=== PATIENT | female | born 1940 | race Caucasian/White ===

== ENCOUNTER → 2024-02-23 | Outpatient (CLI) | payer MEDICARE, SELFPAY ==
[2024-02-23 13:50] LABS: Free T4 (Free Thyroxine) 1.41 ng/dL (0.89-1.76); Thyroid Stimulating Hormone 1.96 uIU/mL (0.55-4.78)
== END | disposition home or self-care (01) ==
LOC: COPL 12:15
PROVIDERS: PCP Family Medicine; Referring Provider Internal Medicine Endocrinology, Diabetes & Metabolism; Visit Provider Internal Medicine Endocrinology, Diabetes & Metabolism
DX: E06.3 Autoimmune thyroiditis (principal)
CPT/HCPCS: 36415; 84439; 84443

== ENCOUNTER → 2024-06-21 | Outpatient (CLI) | payer MEDICARE, SELFPAY ==
--- NOTE | 2024-06-21 | XR_ITS ---
Examination: Abdomen AP single view Technique: AP portable supine abdomen, single view Exam date and time: June 21, 2024 1222 hours INDICATIONS: Abdominal pain beginning 6 months ago. FINDINGS: Moderate to large amounts of stool throughout the colon No obstruction No free air Prominent lumbar dextroscoliosis IMPRESSION: Moderate to large amounts of stool throughout the colon
[2024-06-21 14:10] LABS: Collection Type, Urine Clean Catch
[2024-06-21 14:32] LABS: Basophils % (Auto) 1 % (0-2.5); Eosinophils # (Auto) 0.2 Thou/mm3 (0.0-0.5); Eosinophils % (Auto) 4 % (0-10); Hematocrit 43.9 % (36.0-46.0); Hemoglobin 14.7 g/dL (12.0-16.0); Immature Granulocytes % (Auto) 0 % (0-0); Immature Granulocytes Auto 0.01 Thou/mm3 (0.00-0.00); Lymphocytes # (Auto) 1.5 Thou/mm3 (1.0-4.8); Lymphocytes % (Auto) 27 % (10-50); Mean Corpuscular HGB Conc 33.5 g/dl (31.0-37.0); Mean Corpuscular Hemoglobin 30.5 pg (25.0-35.0); Mean Corpuscular Volume 91 fL (80-100); Monocytes # (Auto) 0.3 Thou/mm3 (0.0-0.8); Monocytes % (Auto) 6 % (0-12); Neutrophils # (Auto) 3.4 Thou/mm3 (1.8-7.7); Neutrophils % (Auto) 63 % (37-80); Nucleated Red Blood Cell % 0 /100 WBC (0); Platelet Count 167 Thou/mm3 (140-440); RDW Standard Deviation 45.6 fL (36.4-46.3); Red Blood Count 4.82 Miln/mm3 (4.00-5.20); White Blood Count 5.4 Thou/mm3 (3.6-11.0)
[2024-06-21 14:41] LABS: Alanine Aminotransferase 29 U/L (10-49); Albumin, Serum 4.4 gm/dL (3.4-4.8); Albumin/Globulin Ratio 1.8 (1.2-2.2); Alkaline Phosphatase 87 U/L (46-116); Amylase 28 U/L (30-118); Anion Gap 6 (7-16); Aspartate Amino Transferase 21 U/L (0-34); BUN/Creatinine Ratio 22 Ratio (12-20); Bilirubin,Total 2.2 mg/dL (0.3-1.2); Blood Urea Nitrogen 20 mg/dL (9-23); Calcium 10.1 mg/dL (8.3-10.6); Calcium (Corrected) 10.1 mg/dL (8.5-10.1); Chloride 107 mMol/L (98-107); Creatinine (Component) 0.9 mg/dL (0.6-1.3); Globulin 2.4 gm/dL (2.3-3.5); Glucose 96 mg/dL (74-106); Lipase 28 U/L (12-53); Osmolality,Calculated 287 (275-295); Potassium 4.7 mMol/L (3.4-5.1); Sodium 143 mMol/L (136-145); Total Protein 6.8 gm/dL (5.7-8.2); eGFR > 60 See Note
[2024-06-21 14:42] LABS: Bilirubin,Urine Negative (Negative); Blood,Urine Negative (Negative); Clarity,Urine Clear (Clear/Hazy); Color,Urine Lt-Yellow (Lt Yel-Yel); Glucose, Urine Negative (Negative); Ketones,Urine Negative (Negative); Leukocyte Esterase,Urine Negative (Negative); Nitrite,Urine Negative (Negative); PH,Urine 7.5 (5.0-7.0); Protein,Urine Negative (Neg - Trace); RBC,Urine 5 /hpf (0-3); Specific Gravity,Urine 1.013 (1.001-1.035); Squamous Epithelial Cell,Urine 1 /hpf (0-5); Urobilinogen,Urine Negative mg/dL (0.0-1.0); WBC,Urine < 1 /hpf (0-5)
== END | disposition home or self-care (01) ==
LOC: CDIM 11:30
PROVIDERS: Referring Provider Specialist; Visit Provider Specialist
DX: K59.00 Constipation, unspecified (principal); R10.32 Left lower quadrant pain; R14.0 Abdominal distension (gaseous)
CPT/HCPCS: 36415; 74018; 80053; 81001; 82150; 83690; 85025

== ENCOUNTER 2024-06-22 09:50 | Day surgery (SDC) | payer MEDICARE, SELFPAY ==
[2024-06-21 15:11] VITALS: BMI 30.4
[2024-06-22] VITALS (8 sets, daily range): BP systolic 140–179; BP diastolic 66–74; PULSE 51–60; RESP 14–19; TEMP 36.6–36.7; O2SAT 93–97; BMI 30.1
[2024-06-22] MEDS: SODIUM CHLORIDE 0.9% 500 ML 500 ML 20 ML IV (11:48)
[2024-06-22] MEDS: fentaNYL CIT INJ 50 mCg/ML AMP 2ML (ASD USE ONLY) IV (11:54)
[2024-06-22] MEDS: MIDAZOLAM INJ 1 MG/ML VIAL 2 ML (ASD USE ONLY) 2 MG IV (11:54)
[2024-06-22] MEDS: DiphenhydrAMINE INJ 50 MG/ML VIAL 25 MG IV (11:54)
[2024-06-22] MEDS: ONDANSETRON INJ 2 MG/ML INJ 2 ML 4 MG IV (11:55)
== END 2024-06-22 13:05 | disposition home or self-care (01) ==
PROVIDERS: PCP Registered Nurse; Referring Provider Specialist; Visit Provider Specialist
PROC: (CPT 43239; principal; 2024-06-22 11:00)
DX: K20.91 Esophagitis, unspecified with bleeding (principal); K31.89 Other diseases of stomach and duodenum; K44.9 Diaphragmatic hernia without obstruction or gangrene
CPT/HCPCS: 43235; J1200; J2250; J2405; J3010; J7040

== ENCOUNTER → 2024-06-28 | Outpatient (CLI) | payer MEDICARE, SELFPAY ==
--- NOTE | 2024-06-28 11:30 | XR_ITS ---
Examination: Abdomen sonogram, Limited Date and time of exam: June 28, 2024 at 1105 hrs. Indications: Epigastric pain beginning 5 months ago Technique: Real-time kinney scale transabdominal sonographic images of the upper abdomen obtained. Findings: Normal gallbladder. Normal common bile duct 0.5 cm. Pancreatic head 1.9 cm. Liver 15.0 cm Liver irregular contour Normal hepatopedal portal venous flow. Patent IVC. Impression: Normal gallbladder Suspect primary hepatocellular disease
== END | disposition home or self-care (01) ==
PROVIDERS: PCP Registered Nurse; Referring Provider Specialist; Visit Provider Specialist
DX: R14.0 Abdominal distension (gaseous) (principal); R10.32 Left lower quadrant pain; R10.31 Right lower quadrant pain
CPT/HCPCS: 76705

== ENCOUNTER → 2024-08-22 | Outpatient (CLI) | payer MEDICARE, SELFPAY ==
[2024-08-22 12:56] LABS: Basophils % (Auto) 1 % (0-2.5); Eosinophils # (Auto) 0.1 Thou/mm3 (0.0-0.5); Eosinophils % (Auto) 2 % (0-10); Hematocrit 43.1 % (36.0-46.0); Hemoglobin 14.6 g/dL (12.0-16.0); Immature Granulocytes % (Auto) 0 % (0-0); Immature Granulocytes Auto 0.01 Thou/mm3 (0.00-0.00); Lymphocytes # (Auto) 1.2 Thou/mm3 (1.0-4.8); Lymphocytes % (Auto) 24 % (10-50); Mean Corpuscular HGB Conc 33.9 g/dl (31.0-37.0); Mean Corpuscular Hemoglobin 30.7 pg (25.0-35.0); Mean Corpuscular Volume 91 fL (80-100); Monocytes # (Auto) 0.3 Thou/mm3 (0.0-0.8); Monocytes % (Auto) 7 % (0-12); Neutrophils # (Auto) 3.2 Thou/mm3 (1.8-7.7); Neutrophils % (Auto) 65 % (37-80); Nucleated Red Blood Cell % 0 /100 WBC (0); Platelet Count 165 Thou/mm3 (140-440); RDW Standard Deviation 44.3 fL (36.4-46.3); Red Blood Count 4.76 Miln/mm3 (4.00-5.20); White Blood Count 4.9 Thou/mm3 (3.6-11.0)
[2024-08-22 13:18] LABS: Glucose Estimated Average 134 mg/dL (80-131); Hemoglobin A1C 6.3 % Hgb (4.8-6.0)
[2024-08-22 13:38] LABS: Alanine Aminotransferase 23 U/L (10-49); Albumin, Serum 4.5 gm/dL (3.4-4.8); Albumin/Globulin Ratio 1.9 (1.2-2.2); Alkaline Phosphatase 74 U/L (46-116); Anion Gap 6 (7-16); Aspartate Amino Transferase 17 U/L (0-34); BUN/Creatinine Ratio 26 Ratio (12-20); Blood Urea Nitrogen 21 mg/dL (9-23); Calcium 9.5 mg/dL (8.3-10.6); Calcium (Corrected) 9.5 mg/dL (8.5-10.1); Carbon Dioxide 29.8 mMol/L (20.0-31.0); Cardiac Risk Estimate 2.6 RATIO (3.7-5.6); Chloride 104 mMol/L (98-107); Cholesterol 144 mg/dL (132-200); Creatinine (Component) 0.8 mg/dL (0.6-1.3); Globulin 2.4 gm/dL (2.3-3.5); Glucose 122 mg/dL (74-106); HDL Cholesterol 56 mg/dL (40-60); LDL Cholesterol,Calculated 69 mg/dL (0-130); Osmolality,Calculated 283 (275-295); Potassium 4.5 mMol/L (3.4-5.1); Sodium 140 mMol/L (136-145); Thyroid Stimulating Hormone 0.65 uIU/mL (0.55-4.78); Total Protein 6.9 gm/dL (5.7-8.2); Triglycerides 97 mg/dL (30-150); eGFR > 60 See Note
== END | disposition home or self-care (01) ==
LOC: COPL 11:47
PROVIDERS: PCP Registered Nurse; Referring Provider Internal Medicine Endocrinology, Diabetes & Metabolism; Visit Provider Internal Medicine Endocrinology, Diabetes & Metabolism
DX: E06.3 Autoimmune thyroiditis (principal); I25.10 Atherosclerotic heart disease of native coronary artery without angina pectoris
CPT/HCPCS: 36415; 80053; 80061; 83036; 84439; 84443; 85025

== ENCOUNTER → 2024-11-17 | Outpatient (CLI) | payer MEDICARE, SELFPAY ==
--- NOTE | 2024-11-17 08:45 | XR_ITS ---
Examination: MRI brain without intravenous contrast. Date and time of exam: November 17, 2024 0825 hours INDICATIONS: Headaches severe memory loss COMPARISON: March 21, 2018 Technique: Multiple axial and sagittal images of the brain obtained. Siemens high-resolution 1.5 Fadia short bore scanners utilized. Sagittal sections, T1-weighted, TR 500, TE 14, are performed. Axial sections proton-density and T2-weighted have been obtained. Inversion recovery axial images, TR 9, 260, TE 111, TI 2500. Diffusion weighted images, axial sections, TR 4800, TE 128, B value 1000 Axial sections, ADC map, TR 4800, TE 128 Findings: Enlargement of the sella turcica is not present. The optic chiasm and infundibular are not remarkable. Prepontine and interpeduncular cisterns are not enlarged. There is no localized enlargement of the medulla or andi. Fourth ventricle and cerebellar tonsils appear normal in position. No subacute area of hemorrhage density is seen. Mass in the cerebellopontine angle region is not evident. Globes symmetrical. Orbital musculature including medial lateral rectus muscles do not exhibit abnormality. Diffusion-weighted images demonstrate no focus of restricted diffusion. Increased white matter signal prominent Mass effect upon the ventricular system is not identified. Impression: Negative for acute hemorrhage mass effect or midline shift No acute infarct. Prominent chronic microvascular white matter change
== END | disposition home or self-care (01) ==
LOC: SMRI 07:09
PROVIDERS: PCP Registered Nurse; Referring Provider Registered Nurse; Visit Provider Registered Nurse
DX: R90.82 White matter disease, unspecified (principal)
CPT/HCPCS: 70551

== ENCOUNTER → 2024-11-28 | Outpatient (CLI) | payer MEDICARE, SELFPAY ==
--- NOTE | 2024-11-28 13:00 | XR_ITS ---
Examination: Screening digital mammography, bilateral Computer aided detection 3-D breast Tomosynthesis, bilateral Date and time of exam: November 28, 2024 1247 hours Compared to mammograms dating to June 25, 2020 Indication: Screening Technique: Nonmagnified MLO, CC views of the breasts to been obtained, reconstructed from 3-D Tomosynthesis images. R2 computer aided detection program utilized for evaluation of suspicious masses and/or abnormal calcifications. 3-D Tomosynthesis images obtained. Findings: Scattered areas of fibroglandular density 5 mm nodule retroareolar region left breast Benign calcifications Impression: BI-RADS Category 0: Incomplete: Need additional imaging evaluation 5 mm nodule retroareolar region left breast, recommend follow-up spot tomographic views of this nodule as well as left breast sonography to complete the workup
--- NOTE | 2024-11-28 13:20 | XR_ITS ---
Examination: Bone densitometry Date and time of exam:November 28, 2024 1309 hours INDICATIONS: Menopause age 55 hemothorax and 5 years diabetic Technique: Lumbar spine and hip total bone mineralization values of an calculated. Peak reference and age match control results have been displayed. Findings: Lumbar spine total bone mineralization is1.541 gm/cm2. This is 0.5 standard deviations above peak reference. This is 7.3 standard deviations above age-matched controls. Hip total bone mineralization is 0.944 gm/cm2 This is 0.0 standard deviations at peak reference. This is 2.2 standard deviations above age-matched controls Impression: There is normal mineralization based on lumbar spine measurements. There is normal mineralization based on hip measurements Lumbar mineralization is increase 4.6% compared with July 09, 2021 Hip mineralization is decreased 11.4% compared with July 09, 2021
== END | disposition home or self-care (01) ==
LOC: CDIM 12:33
PROVIDERS: PCP Family Medicine; Referring Provider Registered Nurse; Visit Provider Registered Nurse
DX: Z12.31 Encounter for screening mammogram for malignant neoplasm of breast (principal); N63.42 Unspecified lump in left breast, subareolar; M81.0 Age-related osteoporosis without current pathological fracture
CPT/HCPCS: 77063; 77067; 77080

== ENCOUNTER → 2025-01-02 | Outpatient (CLI) | payer MEDICARE, SELFPAY ==
--- NOTE | 2025-01-02 12:30 | XR_ITS ---
Examination: Breast ultrasound, unilateral, left complete Date and time of exam: January 02, 2025 1308 hours INDICATIONS: Mammogram November 28, 2024 5 mm nodule retroareolar region left breast Technique: Real-time kinney scale ultrasonographic imaging performed left breast including all 4 quadrants as well as nipple retroareolar and axillary region. Findings: No cystic or solid mass left breast 2 cm axillary lymph node with smaller lymph nodes IMPRESSION: BI-RADS Category 2: Benign findings
--- NOTE | 2025-01-02 13:15 | XR_ITS ---
Examination: Diagnostic digital mammography, unilateral, left Computer aided detection 3-D breast Tomosynthesis, unilateral Date and time of exam: January 02, 2025 1318 hours INDICATIONS: Mammogram November 28, 2024 5 mm nodule retroareolar region left breast Technique: Nonmagnified MLO, CC views of the left breast have been obtained, reconstructed from 3-D Tomosynthesis images. R2 computer aided detection program utilized for evaluation of suspicious masses and/or abnormal calcifications. 3-D Tomosynthesis images obtained. Findings: Scattered areas of fibroglandular density. Benign calcifications. No suspicious nodule is depicted on the spot compression follow-up views Impression: BI-RADS category 2: Benign findings Return to yearly follow-up mammography
== END | disposition home or self-care (01) ==
LOC: CDIM 12:30
PROVIDERS: PCP Family Medicine; Referring Provider Registered Nurse; Visit Provider Registered Nurse
DX: R92.322 Mammographic fibroglandular density, left breast (principal); R92.1 Mammographic calcification found on diagnostic imaging of breast
CPT/HCPCS: 76641; 77061; 77065; G0279

== ENCOUNTER → 2025-01-17 | Outpatient (CLI) | payer MEDICARE, SELFPAY ==
--- NOTE | 2025-01-17 08:00 | XR_ITS ---
Examination: MRI lumbar spine without contrast Date and time of exam: January 17, 2025, 0741 hours, comparison February 04, 2017 INDICATIONS: Low back pain 15 years worse with sitting and bladder incontinence this year Technique: Multiple MRI axial and sagittal sections lumbar spine. Sagittal T2-weighted images, TR 3500, TE 118 T1 weighted transverse sections, TR 688 T8.5, T2-weighted sagittal sections T1 weighted sagittal sections TR 621, TE 30 T2 axial sections, TR 4, 190, TE 84. Findings: Adequate alignment lumbar vertebral bodies on the lateral view Advanced diffuse lumbar disc narrowing and diffuse disc desiccation Reactive bony endplate change L4-L5 No lumbar fracture Moderate lumbar spondylosis No spondylolisthesis L5-S1 2 mm central lumbar disc bulge L4-L5 5 mm right foraminal disc bulge with mild right L4 ganglionic compression L3-L4 4 mm left foraminal disc bulge with mild left L3 ganglionic compression L2-L3 no disc protrusion L1-L2 2 mm central lumbar disc bulge IMPRESSION: Diffuse advanced lumbar degenerative disc disease L5-S1 2 mm central lumbar disc bulge L4-L5 5 mm right foraminal disc bulge with mild right L4 ganglionic compression L3-L4 4 mm left foraminal disc bulge with mild left L3 ganglionic compression
== END | disposition home or self-care (01) ==
LOC: SMRI 07:26
PROVIDERS: PCP Registered Nurse; Referring Provider Registered Nurse; Visit Provider Registered Nurse
DX: M51.360 Other intervertebral disc degeneration, lumbar region with discogenic back pain only (principal); M51.370 Other intervertebral disc degeneration, lumbosacral region with discogenic back pain only; G95.20 Unspecified cord compression
CPT/HCPCS: 72148